=== PATIENT | male | born 1985 | race Caucasian/White ===

== ENCOUNTER 2017-12-04 19:03 | Emergency (ER) | payer SELFPAY ==
[2017-12-04 19:20] VITALS: BP 146/89
--- NOTE | 2017-12-04 19:52 | EDM.PDOCBH ---
ED HPI GENERAL MEDICAL PROBLEM - General Chief Complaint: Drug or Alcohol Abuse Stated Complaint: MEDICAL CLEARENCE Time Seen by Provider: 12/04/17 19:51 Source of Information: Reports: Patient History Limitations: Reports: No Limitations - History of Present Illness INITIAL COMMENTS - FREE TEXT/NARRATIVE: Patient is a 32-year-old male who presents to the ED for medical clearance to go to the [facility] bed for drug rehabilitation. Patient smokes/ injects methamphetamines approximately 1-2 g daily. Last used methamphetamines approximately 2:00 this afternoon after discussion with [facility] human services staff. Patient wants help for his drug addiction. Denies any other recreational drugs. Denies use of alcohol. Patient smokes half pack to one pack per day. No additional past medical history and currently taking no other medications. He offers no additional complaints. - Related Data Allergies Allergy/AdvReac Type Severity Reaction Status Date / Time No Known Allergies Allergy Verified 12/04/17 19:20 Home Meds: Home Meds . [No Known Home Meds] 12/04/17 [History] Past Medical History - Past Health History Medical/Surgical History: Denies Medical/Surgical History HEENT History: Reports: Other (See Below) Other HEENT History: Poor dentine Psychiatric History: Reports: Addiction - Past Surgical History Male Surgical History: Reports: Vasectomy Other Musculoskeletal Surgeries/Procedures:: ORIF Right foot Social & Family History - Family History Family Medical History: Noncontributory - Tobacco Use Smoking Status *Q: Current Every Day Smoker Years of Tobacco use: 20 Packs/Tins Daily: 0.5 Used Tobacco, but Quit: No - Caffeine Use Caffeine Use: Reports: Soda - Recreational Drug Use Recreational Drug Use: No Recreational Drug Type: Reports: Marijuana/Hashish, Methamphetamine - Living Situation & Occupation Living situation: Reports: Occupation: Employed ED ROS GENERAL - Review of Systems Review Of Systems: See Below Constitutional: Reports: No Symptoms HEENT: Reports: No Symptoms Respiratory: Reports: No Symptoms Cardiovascular: Reports: No Symptoms GI/Abdominal: Reports: No Symptoms : Reports: No Symptoms Musculoskeletal: Reports: No Symptoms Skin: Reports: No Symptoms Neurological: Reports: No Symptoms Psychiatric: Reports: Cravings. Denies: Anxiety, Depression, Hallucinations, Homicidal Ideation, Mood Lability, Suicidal Ideation ED EXAM, BEHAVIORAL HEALTH - Physical Exam Exam: See Below Exam Limited By: No Limitations General Appearance: Alert, WD/WN, No Apparent Distress Eye Exam: Bilateral Eye: Normal Inspection, PERRL Ears: Hearing Grossly Normal Nose: Normal Inspection Throat/Mouth: Normal Voice, No Airway Compromise Neck: Normal Inspection, Supple Respiratory/Chest: No Respiratory Distress, Lungs Clear, Normal Breath Sounds, No Accessory Muscle Use Cardiovascular: Normal Peripheral Pulses, Regular Rate, Rhythm Extremities: Normal Inspection Neurological: Alert, Normal Mood/Affect, CN II-XII Intact, Normal Cognition, No Motor/Sensory Deficits, Oriented x 3 Psychiatric: Alert, Normal Affect, Normal Cognition, Normal Mood, Oriented Skin Exam: Warm, Dry, Intact, Normal color, No rash COURSE, BEHAVIORAL HEALTH COMP - Course Vital Signs: Last Vital Signs Temp 97.5 F 12/04/17 19:17 Pulse 84 12/04/17 19:17 Resp 18 12/04/17 19:17 BP 146/89 H 12/04/17 19:17 Pulse Ox 99 12/04/17 19:17 Orders, Labs, Meds: Active Orders 24 hr Category Date Time Status EKG Documentation Completion [RC] STAT Care 12/04/17 19:49 Active Laboratory Tests 12/04/17 12/04/17 12/04/17 Range/Units 19:25 20:10 20:10 WBC 6.11 (4.23-9.07) K/mm3 RBC 5.34 (4.63-6.08) M/mm3 Hgb 15.6 (13.7-17.5) gm/L Hct 44.1 (40.1-51.0) % MCV 82.6 (79.0-92.2) fl MCH 29.2 (25.7-32.2) pg MCHC 35.4 (32.2-35.5) g/dl RDW Std Deviation 41.1 (35.1-43.9) fL Plt Count 207 (163-337) K/mm3 MPV 9.5 (9.4-12.3) fl Neutrophils % (Manual) 68 H (40-60) % Band Neutrophils % 0 (0-10) % Lymphocytes % (Manual) 30 (20-40) % Atypical Lymphs % 0 % Monocytes % (Manual) 1 L (2-10) % Eosinophils % (Manual) 0 L (0.8-7.0) % Basophils % (Manual) 1 (0.2-1.2) Platelet Estimate Adequate RBC Morph Comment Normal Sodium 142 (136-145) mEq/L Potassium 3.8 (3.5-5.1) mEq/L Chloride 101 (98-107) mEq/L Carbon Dioxide 26 (21-32) mEq/L Anion Gap 18.8 H (5-15) BUN 14 (7-18) mg/dL Creatinine 0.9 (0.7-1.3) mg/dL Est Cr Clr Drug Dosing 106.33 mL/min Estimated GFR (MDRD) > 60 (>60) mL/min BUN/Creatinine Ratio 15.6 (14-18) Glucose 130 H (74-106) mg/dL Calcium 9.2 (8.5-10.1) mg/dL Total Bilirubin 0.6 (0.2-1.0) mg/dL AST 24 (15-37) U/L ALT 23 (16-63) U/L Alkaline Phosphatase 86 (46-116) U/L Total Protein 7.9 (6.4-8.2) g/dl Albumin 4.4 (3.4-5.0) g/dl Globulin 3.5 gm/dL Albumin/Globulin Ratio 1.3 (1-2) TSH 3rd Generation 0.775 (0.358-3.74) uIU/mL Urine Opiates Screen Negative (NEGATIVE) Ur Buprenorphine Scrn Negative (NEGATIVE) Ur Oxycodone Screen Negative (NEGATIVE) Urine Methadone Screen Negative (NEGATIVE) Ur Propoxyphene Screen Negative (NEGATIVE) Ur Barbiturates Screen Negative (NEGATIVE) Ur Tricyclics Screen Negative (NEGATIVE) Ur Phencyclidine Scrn Negative (NEGATIVE) Ur Amphetamine Screen Presumptive positive H (NEGATIVE) U Methamphetamines Scrn Presumptive positive H (NEGATIVE) U Benzodiazepines Scrn Negative (NEGATIVE) U Cocaine Metab Screen Negative (NEGATIVE) U Marijuana (THC) Screen Presumptive positive H (NEGATIVE) Ethyl Alcohol 0.00 (0.00) gm% Re-Assessment/Re-Exam: Patient is a 32-year-old male seen here for medical clearance to go to the [facility]. He uses methamphetamines. Denies any complaints at this time. Labs ordered include: CBC, chem 14, TSH, urine drug tox. In addition EKG. EKG: Sinus tachycardia with no acute ST changes at a rate of 105. Labs reviewed: CBC and chemistry panel essentially normal. TSH within normal limits. Urine drug tox positive for amphetamines, methadone findings, and THC. Serum EtOH 0. 8 Contacted [facility] Crisis bed staff. They will have the nurse aeronautical drafter this evening call for report. [id number] [facility] nurse has called back. They will send somebody to pick him up. No meds to be prescribed. [id number] Patient resting comfortably in bed with no complaints. Discharge instructions as documented. Departure - Departure Time of Disposition: 21:53 Disposition: Home, Self-Care 01 Condition: Good Clinical Impression: Drug abuse, Drug dependence - Discharge Information Instructions: Chemical Dependency, Substance Use Disorder, Finding Treatment for Addiction, Stimulant Use Disorder-Methamphetamines Referrals: Benjamín Horn Jr, MD [Primary Care Provider] - Additional Instructions: Follow-through with treatment plan by [facility] human services. Refrain from methamphetamine use. Refrain from using any other recreational drugs and/or alcohol. Return to the ED if you develop any new or worsening symptoms. - My Orders Last 24 Hours: My Active Orders 12/04/17 19:49 EKG Documentation Completion [RC] STAT - Assessment/Plan Last 24 Hours: My Active Orders 12/04/17 19:49 EKG Documentation Completion [RC] STAT
== END 2017-12-04 22:05 | disposition home or self-care (01) ==
LOC: JD.ED 19:03
DX: F15.20 Other stimulant dependence, uncomplicated (principal); F17.210 Nicotine dependence, cigarettes, uncomplicated
CPT/HCPCS: 36415; 80053; 80306; 84443; 85025; 93005; 99283; G0480; 93010